=== PATIENT | male | born 1945 | race Caucasian/White ===

== ENCOUNTER 2016-08-15 21:40 | Emergency (ER) | payer OTHER ==
[~2016-08-15] VITALS: Ht 172.7 cm; Wt 86.9 kg
[2016-08-16 00:34] VITALS: BP 163/81
== END 2016-08-16 00:36 | disposition home or self-care (01) ==
LOC: RME 21:40 → EME 21:40 → RME 08-16 00:36
DX: M79.89 Other specified soft tissue disorders (principal); Z98.890 Other specified postprocedural states; Z96.652 Presence of left artificial knee joint
CPT/HCPCS: 93971; 99281; 99284